=== PATIENT | male | born 1990 | race Caucasian/White ===

== ENCOUNTER 2022-07-08 11:49 | Emergency (ER) | payer SELFPAY ==
[~2022-07-08] VITALS: Ht 167.6 cm; Wt 78.0 kg
[2022-07-08 12:09] VITALS: BP 116/68
== END 2022-07-08 17:26 | disposition home or self-care (01) ==
LOC: ER 11:49
DX: R68.89 Other general symptoms and signs (principal)
CPT/HCPCS: 99281